=== PATIENT | female | born 1990 | race Caucasian/White ===

== ENCOUNTER 2021-05-06 20:08 | Emergency (ER) | payer SELFPAY | END 2021-05-07 01:08 | disposition left against medical advice (07) | LOC: ER 20:08 | DX: N39.0 Urinary tract infection, site not specified (principal); Z53.21 Procedure and treatment not carried out due to patient leaving prior to being seen by health care provider ==

== ENCOUNTER 2024-09-11 17:07 | Emergency (ER) | payer SELFPAY ==
[~2024-09-11] VITALS: Ht 172.7 cm; Wt 56.8 kg
[2024-09-11 17:17] VITALS: BP 119/73; PULSE 89; TEMP 97.9; O2SAT 100
--- NOTE | 2024-09-11 17:20 | Physician Documentation ---
History of Present Illness ~ Stated Complaint: LACERATION ON HAND Time Seen by MD: 17:52 Primary Medical Doctor: NONE HPI 44-year-old female presents to the emergency department reporting that she was reaching into a lawnmower chute while it was running and caught the tips of the 2nd and 3rd fingers on the right hand and the blade. She presents with mild but active bleeding to the distal tips of both fingers. She is unsure when her last tetanus was. Day of Onset: Sep 11, 2024 Tetanus Within 5 Years: No Medication Reconciliation Allergies: Coded Allergies: Penicillins (Unverified Allergy, Unknown, 09/11/24) ampicillin (Unverified Allergy, Unknown, 09/11/24) Scheduled PRN Hydrocodone Bit/Acetaminophen 5/325 MG (Upperglade 5/325 MG), 1 TAB PO Q6H PRN for pain Past Medical History Past Medical History: No Pertinent History Past Surgical History: no surgical history Alcohol Use: Abuse Drug Use: none Lives with: Spouse Lives In: Home Review of Systems ROS As stated above in the HPI, otherwise all systems are reviewed and negative. Physical Exam Physical Exam General: Alert, no apparent distress. Respiratory: Lungs clear, no respiratory distress. Extremities: Superficial abrasions with mild active bleeding to distal tips of fingers 2 and 3 right hand. Brief exam in triage. Neurologic: Oriented x4. Psychiatric: Normal mood and affect. Skin: Normal color, warm and dry. No edema, no ecchymosis. Procedures Additional Procedures Additional Procedure Note Injected lidocaine and the affected fingers 2nd 3rd and 4th fingers of right hand. Fingers were irrigated at at the distal aspect, and splinting was placed. Patient refused tetanus shot Progress Results/Orders Results/Orders Orders - REID BANDA PLUMBER'S HELPER Finger(S) (09/11/24 17:59) Laceration/I&D Tray Set Up (09/11/24 ) Completed Orders - REID BANDA PLUMBER'S HELPER Finger(S) (09/11/24 17:59) Tetanus/Pertuss/Diph Acell/Pf (Boostrix (09/11/24 18:00) Ketorolac Trometh 30mg/Ml Vial (Toradol (09/11/24 18:30) Lidocaine 1% 30ml Vial (Xylocaine 1% Via (09/11/24 18:33) Medications Received in ER Medications (Trade) Dose Ordered Sig/Florian Route PRN Reason Start Time Stop Time Status Last Admin Dose Admin (LIDOcaine/ epiNEPH/ tetracaine top jerry 3ml SYR) 3 ml ONCE ONCE TOP 09/11/24 17:20 09/11/24 17:22 DC 09/11/24 17:32 3 ML (Toradol inj. 30mg/ml) 30 mg ONCE ONCE IM 09/11/24 18:30 09/11/24 18:31 DC 09/11/24 18:51 30 MG Vital Signs 09/11/24 09/11/24 17:17 18:51 Temp 97.9 Pulse 89 Resp 20 20 B/P (MAP) 119/73 Pulse Ox 100 O2 Flow Rate 0 Medical Decision Making Findings This patient has two fractures per my interpretation on the 2nd and 3rd distal aspect of her right index and middle finger. Utilize Dermabond lidocaine to numb the area and stopped bleeding. Wound care was completed and two small finger splints were placed.. Patient was advised to keep the area clean and dry. She was also educated that she will likely lose one or both of her nail nails on her to affected fingers Differential Dx:Considerations: Include: Abrasion, Avulsion, Contusion, Laceration, Fracture, Hematoma, Neurovascular injury, Retained foreign body Departure Disposition: HOME / SELF CARE / HOMELESS Impression: Primary Impression: Laceration Additional Impression: Finger fracture, right Condition: Stable Discharge Instructions: Finger Fracture, Adult Referrals: NO PRIMARY CARE PROVIDER (PCP) Prescriptions Hydrocodone Bit/Acetaminophen 5/325 MG (Upperglade 5/325 MG) 5 Mg/325 Mg Tablet 1 TAB PO Q6H PRN for pain, #14 TAB Prov: REID BANDA [employer] HELPER 09/11/24 Education Educated regarding: diagnosis Signature Scribe Signature: t Attestation: The note accurately reflects work and decisions made by me.Reid Banda - MARIA INES 09/11/24 21:46 JT MUNSON NP Sep 11, 2024 17:20 REID BANDA NP Sep 11, 2024 17:56
[2024-09-11] MEDS: fentaNYL 50MCG/ML 2ML intranasal KIT (WASTE REMAINDER W/WITNESS) NAS STA (17:32)
[2024-09-11] MEDS: LIDOcaine/epinephrine/tetracaine TOPICAL sol 3 ML syringe TOP ONE (17:32)
[2024-09-11] MEDS: TETanus/Pertussis (Acell)/Diphther VAC/PF (Tdap-Adult) 0.5ml syringe IMVAC ONE ×2 (17:52→18:50)
--- NOTE | 2024-09-11 18:15 | RADIOLOGY REPORT ---
EXAM: DI FINGER(S) INDICATION: lawnmower injury,RIGHT TECHNIQUE: 3 views of the right fingers COMPARISON: None FINDINGS: Nondisplaced oblique fracture of the 2nd distal phalanx. Comminuted extensive fresh fracture with mul tiple small osseous fragments of the distal tuft distal phalanx of the 3rd digit. Overlying soft tiss ue injury. IMPRESSION: 1. Nondisplaced fracture of the 2nd distal phalanx. 2. Comminuted, displaced distal tuft distal phalanx fracture of the 3rd digit. ,
[2024-09-11] MEDS: LIDOcaine 1% 30ml preserv. free vial SQ STA (18:49)
[2024-09-11 18:51] VITALS: RESP 20
[2024-09-11] MEDS: ketorolac trometh 30MG/ML vial 30 MG/ML VIAL IM ONE (18:51)
[2024-09-11] MEDS ORDERED: HYDR-3965 PO (19:29)
== END 2024-09-11 19:25 | disposition home or self-care (01) ==
LOC: ER 17:07
DX: S62.630A Displaced fracture of distal phalanx of right index finger, initial encounter for closed fracture (principal); S62.632A Displaced fracture of distal phalanx of right middle finger, initial encounter for closed fracture; S61.411A Laceration without foreign body of right hand, initial encounter; F10.10 Alcohol abuse, uncomplicated; Y90.9 Presence of alcohol in blood, level not specified; X58.XXXA Exposure to other specified factors, initial encounter; Y93.89 Activity, other specified; Y92.89 Other specified places as the place of occurrence of the external cause; Y99.8 Other external cause status; Z88.0 Allergy status to penicillin; Z88.1 Allergy status to other antibiotic agents
CPT/HCPCS: 29130; 73140; 96372; 99283; J1885; J3490; J7030; A6258; A6449

== ENCOUNTER 2024-11-08 14:37 | Emergency (ER) | payer SELFPAY ==
[~2024-11-08] VITALS: Ht 172.7 cm; Wt 56.8 kg
[2024-11-08 14:46] VITALS: BP 115/79; PULSE 69; RESP 18; TEMP 98.8; O2SAT 97
[2024-11-08 15:10] LABS: BILIRUBIN,URINE NEGATIVE (Neg); CLARITY,URINE CLEAR (Clear); COLOR,URINE STRAW (Yellow); GLUCOSE, URINE NEGATIVE (Neg); KETONES,URINE NEGATIVE (Neg); LEUKOCYTE ESTERASE ,URINE TRACE (Neg); NITRITES, URINE NEGATIVE (Neg); OCCULT BLOOD,URINE NEGATIVE (Neg); PROTEIN,URINE NEGATIVE (Neg); UROBILINOGEN,URINE 0.2 E.U/dL (0.2-1.0)
--- NOTE | 2024-11-08 15:17 | Physician Documentation ---
History of Present Illness ~ Chief Complaint: Flank Pain Stated Complaint: KIDNEY INFECTION Time Seen by MD: 15:17 Primary Medical Doctor: NONE HPI Patient is seen today complaints of right-sided flank pain. Patient states she has had UTIs in the past but states this does not necessarily feel like a UTI but she states that can be par for the course for her urinary tract infections. Patient denies any fevers or chills. She has no other concern or complaint at this time. She denies any dysuria or urinary urgency or frequency or chest pain or shortness of breath or abdominal pain or nausea, vomiting, diarrhea. Medication Reconciliation Allergies: Coded Allergies: Penicillins (Unverified Allergy, Unknown, 09/11/24) ampicillin (Unverified Allergy, Unknown, 09/11/24) Past Medical History Past Medical History: No Pertinent History Past Surgical History: no surgical history Alcohol Use: Abuse Drug Use: none Lives with: Spouse Lives In: Home Review of Systems Constitutional: Denies: chills, fever, weakness Eyes: Denies: pain, blurred vision ENT: Denies: ear pain, nose pain, throat pain, mouth pain Respiratory: Denies: cough, shortness of breath Cardiovascular: Denies: chest pain, palpitations Gastrointestinal: Denies: abdominal pain, nausea, vomiting Genitourinary: Denies: burning, dysuria Female Genitalia: Denies: vaginal discharge, pelvic pain Neurological: Denies: headache, dizziness Musculoskeletal: Denies: pain, swelling Integumentary: Denies: rash, lesions Allergic/Immunologic: Denies: hives, itching Hematologic/Lymphatic: Denies: no symptoms reported Psychiatric: Denies: depression, anxiety Physical Exam Physical Exam Vital Signs: Temperature: 98.8, Source: Temporal, Heart Rate: 69, Respiratory Rate: 18, BP: 115/79, Pulse Oximetry: 97, Weight: 56.800 Physical Exam General: Awake and Alert, no acute distress. HEENT: Conjunctiva pink, Sclera clear, Mucus Membranes moist. Neck: Supple without masses and tenderness. Resp: Unlabored. Lungs clear to auscultation bilaterally. Heart: Regular Rate and rhythm, normal S1 and S2 without murmur, rub or gallop. Musculoskeletal: Patient on exam does have tenderness to palpation of the paraspinal muscles on the right lumbar side. Patient has slightly decreased range of motion of the lumbar spine in all planes of motion. Patient is neurovascularly intact distally bilateral upper and lower extremities. Motor function and strength are intact distally Abdomen: Patient on exam has no CVA tenderness on either side. Soft and non te nder no organomegaly Extremities: No cyanosis,clubbing or edema. Skin: Warm and Dry. Progress Results/Orders Results/Orders Orders - JILLIAN DYSON PAC Urinalysis (11/08/24 15:05) Cult Urine + [address] (11/08/24 15:23) Completed Orders - JILLIAN DYSON PAC Ua W/Microscopic, Cult If Ind (11/08/24 14:50) Vital Signs 11/08/24 14:46 Temp 98.8 Pulse 69 Resp 18 B/P (MAP) 115/79 Pulse Ox 97 Laboratory Tests Test 11/08/24 14:50 Urine Specimen Description Non-specified Urine Color Straw Urine Clarity Clear Urine pH 6.0 Urine Specific [place] <=1.005 Urine Protein Negative Urine Glucose (UA) Negative Urine Ketones Negative Urine Occult Blood Negative Urine Nitrite Negative Urine Bilirubin Negative Urine Urobilinogen 0.2 Urine Leukocyte Esterase Trace H Urine RBC None seen Urine WBC None seen Urine Squamous Epithelial Cells Few Urine Bacteria None seen Urine Mucus None seen Urine Culture Indicated Indicated Volume Urine Centrifuged 10 ml Urine Comment Medical Decision Making Findings Patient is seen today complaints of right-sided flank pain. Patient states she has had UTIs in the past but states this does not necessarily feel like a UTI but she states that can be par for the course for her urinary tract infections. Patient denies any fevers or chills. She has no other concern or complaint at this time. She denies any dysuria or urinary urgency or frequency or chest pain or shortness of breath or abdominal pain or nausea, vomiting, diarrhea. Patient did have leukocyte esterase on UA and was sent for culture. Patient is started on Keflex 500 mg by mouth in the ED today. Prescription for Keflex sent to patient's pharmacy. Patient will follow up with primary care in 2-5 days if no better as needed sooner. Return to ED with any worsening, concerning or changing symptoms. Patient declined Rocephin IM injection today. Departure Disposition: HOME / SELF CARE / HOMELESS Impression: Primary Impression: Acute urinary tract infection Condition: Stable Discharge Instructions: Urinary Tract Infection, Adult, [id number] Additional Instructions: Patient did have leukocyte esterase on UA and was sent for culture. Patient is started on Keflex 500 mg by mouth in the ED today. Prescription for Keflex sent to patient's pharmacy. Patient will follow up with primary care in 2-5 days if no better as needed sooner. Return to ED with any worsening, concerning or changing symptoms. Referrals: NO PRIMARY CARE PROVIDER (PCP) Prescriptions Cephalexin*Monohydrate* (Keflex*) 500 Mg Capsule 1 CAP PO Q8H for 7 Days, #21 CAP Prov: JILLIAN DYSON PAC 11/08/24 Signature Scribe Signature: No scribe Attestation: No scribe JILLIAN DYSON PAC Nov 08, 2024 15:17
[2024-11-08 15:22] LABS: RBC,URINE NONE SEEN /HPF (0-2); UA COLLECTION TYPE NON-SPECIFIED; WBC,URINE NONE SEEN /HPF (0-4)
[2024-11-08 15:23] LABS: BACTERIA,URINE NONE SEEN /HPF (Neg); MUCUS STRANDS NONE SEEN /LPF (Neg); SQUAMOUS EPITHELIAL CELL,UR FEW /LPF (FEW)
[2024-11-08] MEDS ORDERED: CEPH-585 PO (16:16)
[2024-11-08] MEDS: cephalexin 250mg capsule PO STA (16:34)
[2024-11-08] MEDS: ketorolac trometh 30MG/ML vial 30 MG/ML VIAL IM STA (16:42)
== END 2024-11-08 16:44 | disposition home or self-care (01) ==
LOC: ER 14:38
DX: N39.0 Urinary tract infection, site not specified (principal); F10.10 Alcohol abuse, uncomplicated; Z88.0 Allergy status to penicillin; Z88.1 Allergy status to other antibiotic agents; Y90.9 Presence of alcohol in blood, level not specified
CPT/HCPCS: 81001; 87088; 99283